=== PATIENT | female | born 1980 | race African-American/Black ===

== ENCOUNTER 2018-12-08 15:37 | Emergency (ER) | payer OTHER ==
[~2018-12-08] VITALS: Ht 160 cm; Wt 88.5 kg
[~2018-12-08 15:37] MED LIST: DOXYCYCLINE 10100 MG PO; IBUPROFEN 200200 M1 PO; MULTIVITAMINS1 EAC7 PO; NAPROSYN500 MG PO; NOHOMEMEDICATIONS; NORCO 5-325 TA1 EACH PO; NORFLEX100 MG PO
[2018-12-08] MEDS ORDERED: AMOXICILLIN 50500 M1 PO (16:26)
[2018-12-08] MEDS ORDERED: NORCO 5-325 TA1 EAC1 PO (16:26)
[2018-12-08 17:13] VITALS: BP 129/91
== END 2018-12-08 16:56 | disposition home or self-care (01) ==
LOC: ER 15:37
DX: H66.91 Otitis media, unspecified, right ear (principal); H72.91 Unspecified perforation of tympanic membrane, right ear; D86.9 Sarcoidosis, unspecified